=== PATIENT | female | born 1950 | race Caucasian/White ===

== ENCOUNTER 2016-04-11 06:30 | Inpatient (IN) | payer MEDICARE, BC ==
[~2016-04-11] VITALS: Ht 160 cm; Wt 81.5 kg
[2016-04-11] MEDS ORDERED: ASPIRIN 81 MG CHEW TAB ONE (06:48)
[2016-04-11] MEDS ORDERED: ONDANSETRON 4 MG VIAL ONE ×2 (06:51→08:59)
[2016-04-11] MEDS ORDERED: MORPHINE 4 MG/ML SYR ONE (07:12)
[2016-04-11] MEDS ORDERED: PROMETHAZINE 25 MG/ML VIAL ONE (07:24)
[2016-04-11] MEDS ORDERED: SODIUM CHLORIDE 0.9% 1,000 ML ONE ×2 (07:25→09:39)
[2016-04-11] MEDS ORDERED: SODIUM CHLORIDE 0.9% 50 ML IV ONE (07:25)
[2016-04-11] MEDS ORDERED: DILAUDID 1 MG/ML AMP ONE (07:25)
[2016-04-11] MEDS ORDERED: ONDANSETRON 4 MG VIAL IV PRN (09:15)
[2016-04-11] MEDS ORDERED: DUONEB INH PRN (09:15)
[2016-04-11] MEDS ORDERED: DEXTROSE 50% SYRINGE 50 ML IV PRN (09:15)
[2016-04-11] MEDS ORDERED: SODIUM CHLORIDE 0.9% 1,000 ML IV ONE ×2 (09:15→13:00)
[2016-04-11] MEDS ORDERED: LACT RINGERS 1,000 ML IV SCH (09:15)
[2016-04-11] MEDS ORDERED: SALINE FLUSH 10 ML FLUSH PRN ×2 (09:15)
[2016-04-11] MEDS ORDERED: GLUCAGON 1 MG VIAL IM PRN (09:15)
[2016-04-11] MEDS ORDERED: ACETAMINOPHEN 325 MG TAB PO PRN (09:15)
[2016-04-11] MEDS ORDERED: ALU/MAG/SIM 30 ML UDC PO PRN (09:15)
[2016-04-11 10:54] VITALS: BP_SYST 143; RESP 18; TEMP 97.2
[2016-04-11] MEDS: LACT RINGERS 1,000 ML IV SCH ×3 (10:56→19:53)
[2016-04-11] MEDS: PROMETHAZINE 25 MG/ML VIAL IV PRN ×2 (11:36→17:53)
[2016-04-11] MEDS: MORPHINE 4 MG/ML SYR IV PRN (11:37)
[2016-04-11 11:52] VITALS: Ht 160 cm; Wt 81.5 kg
[2016-04-11] MEDS: DILAUDID 1 MG/ML AMP IV PRN ×2 (14:47→21:23)
[2016-04-11 15:23] VITALS: BP_SYST 130; RESP 16; TEMP 97.5
[2016-04-11] MEDS: MORPHINE 2 MG/ML SYR IV PRN (17:47)
[2016-04-11 19:22] VITALS: RESP 16
[2016-04-11 19:32] VITALS: BP_SYST 128; RESP 20; TEMP 98.5
[2016-04-11] MEDS: SALINE FLUSH 10 ML FLUSH SCH ×2 (19:54)
[2016-04-11 23:22] VITALS: BP_SYST 148; RESP 20; TEMP 99.4
[2016-04-12] MEDS: MORPHINE 4 MG/ML SYR IV PRN ×4 (00:13→23:44)
[2016-04-12] MEDS: LACT RINGERS 1,000 ML IV SCH ×5 (00:44→22:57)
[2016-04-12] MEDS: DILAUDID 1 MG/ML AMP IV PRN ×5 (02:16→22:09)
[2016-04-12 02:29] VITALS: BP_SYST 123; RESP 20; TEMP 99
[2016-04-12] MEDS: SODIUM CHLORIDE 0.9% FLUSH BAG 500 ML IV SCH ×4 (06:00→23:03)
[2016-04-12] MEDS: MORPHINE 2 MG/ML SYR IV PRN (06:00)
[2016-04-12 07:08] VITALS: BP_SYST 121; RESP 18; TEMP 98.5
[2016-04-12] MEDS: SALINE FLUSH 10 ML FLUSH SCH ×4 (08:00→19:53)
[2016-04-12] MEDS: PANTOPRAZOLE 40 MG VIAL IV SCH (08:33)
[2016-04-12] MEDS: ENOXAPARIN 40 MG/0.4 ML SYR SUBQ SCH (08:33)
[2016-04-12 11:17] VITALS: BP_SYST 133; RESP 18; TEMP 99
[2016-04-12] MEDS: PROMETHAZINE 25 MG/ML VIAL IV PRN ×3 (14:31→23:43)
[2016-04-12] MEDS ORDERED: LACT RINGERS 1,000 ML IV ONE ×2 (14:50)
[2016-04-12 15:08] VITALS: BP_SYST 135; RESP 18; TEMP 98.6
[2016-04-12 19:23] VITALS: BP_SYST 120; BP_SYST 143; RESP 18; TEMP 98.3; TEMP 99.5
[2016-04-12 23:32] VITALS: BP_SYST 170; RESP 18; TEMP 100.2
[2016-04-13] MEDS: DILAUDID 1 MG/ML AMP IV PRN ×7 (01:10→22:50)
[2016-04-13 03:20] VITALS: BP_SYST 145; RESP 16; TEMP 98.6
[2016-04-13] MEDS: PROMETHAZINE 25 MG/ML VIAL IV PRN ×5 (03:44→20:48)
[2016-04-13] MEDS: MORPHINE 4 MG/ML SYR IV PRN ×5 (03:45→20:50)
[2016-04-13] MEDS: LACT RINGERS 1,000 ML IV SCH ×4 (04:16→21:49)
[2016-04-13 07:47] VITALS: BP_SYST 135; RESP 20; TEMP 98.1
[2016-04-13] MEDS: SALINE FLUSH 10 ML FLUSH SCH ×3 (07:50→20:00)
[2016-04-13] MEDS: PANTOPRAZOLE 40 MG VIAL IV SCH (09:04)
[2016-04-13] MEDS: ENOXAPARIN 40 MG/0.4 ML SYR SUBQ SCH (09:10)
[2016-04-13 10:58] VITALS: BP_SYST 147; RESP 20; TEMP 100.2
[2016-04-13] MEDS ORDERED: Hydrocodone/APAP 10/325 MG TAB PO PRN (13:50)
[2016-04-13] MEDS: POTASSIUM CHLORIDE PREMIX 10 MEQ in PART FILL PIGGYBACK 1 EA IV SCH ×4 (14:01→16:53)
[2016-04-13] MEDS: POLYETHYLENE GLYCOL 17 GM PACKET PO SCH (14:37)
[2016-04-13 15:49] VITALS: BP_SYST 128; RESP 20; TEMP 99.3
[2016-04-13] MEDS: SODIUM CHLORIDE 0.9% FLUSH BAG 500 ML IV SCH (20:00)
[2016-04-13 22:10] VITALS: BP_SYST 136; RESP 18; TEMP 99.3
[2016-04-14] VITALS (9 sets, daily range): BP systolic 113–148; RESP 16–18; TEMP 98.2–99.9
[2016-04-14] MEDS: MORPHINE 4 MG/ML SYR IV PRN ×2 (00:50→08:42)
[2016-04-14] MEDS: PROMETHAZINE 25 MG/ML VIAL IV PRN ×5 (00:50→18:16)
[2016-04-14] MEDS: DILAUDID 1 MG/ML AMP IV PRN ×6 (02:49→18:17)
[2016-04-14] MEDS: LACT RINGERS 1,000 ML IV SCH ×3 (02:56→12:01)
[2016-04-14] MEDS: MORPHINE 2 MG/ML SYR IV PRN (04:50)
[2016-04-14] MEDS ORDERED: PANTOPRAZOLE 40 MG TAB PO SCH (07:00)
[2016-04-14] MEDS: PANTOPRAZOLE 40 MG VIAL IV SCH (08:40)
[2016-04-14] MEDS: POLYETHYLENE GLYCOL 17 GM PACKET PO SCH (08:40)
[2016-04-14] MEDS: SALINE FLUSH 10 ML FLUSH SCH (08:40)
[2016-04-14] MEDS: ENOXAPARIN 40 MG/0.4 ML SYR SUBQ SCH (08:41)
[2016-04-14] MEDS ORDERED: PHARMACY TO DOSE MERREM IV SCH (10:45)
[2016-04-14] MEDS ORDERED: OPTIRAY 350 100 ML VIAL HMH IV ONE (10:51)
[2016-04-14] MEDS: POTASSIUM CHLORIDE PREMIX 50 ML IV SCH ×3 (15:01→17:21)
== END 2016-04-14 18:49 | disposition short-term general hospital (02) | DRG 440 ==
LOC: ENRESERVTM → ENRESERVDT → ER 06:30 → DELPENDDIS 09:37 → ENPENDDIS 09:37 → EMR 09:37 → 3NT 10:50
PROVIDERS: ADMIT Internal Medicine; ATTEND Internal Medicine
DX: K85.90 Acute pancreatitis without necrosis or infection, unspecified (principal); E11.9 Type 2 diabetes mellitus without complications; K86.9 Disease of pancreas, unspecified; D72.829 Elevated white blood cell count, unspecified; E78.5 Hyperlipidemia, unspecified; Z80.1 Family history of malignant neoplasm of trachea, bronchus and lung
CPT/HCPCS: 36415; 71010; 71260; 74170; 74176; 80053; 80061; 82550; 82947; 83036; 83690; 83735; 84145; 84439; 84443; 84484; 85025; 85610; 85730; 93005; 94799; 96361; 96365; 96375; 96376; 99223; 99232; 99233; 99239